=== PATIENT | male | born 1950 | race African-American/Black ===

== ENCOUNTER 2018-09-22 15:07 | Inpatient (IN) | payer OTHER, MEDICAID ==
[~2018-09-22] VITALS: Ht 182.9 cm; Wt 93.2 kg
[2018-09-22 15:15] VITALS: Ht 182.9 cm; Wt 93.2 kg
--- NOTE | 2018-09-22 15:24 | NUR ---
PROTECTIVE SIGNAL OPERATOR AT BEDSIDE FOR BLOOD DRAW.
--- NOTE | 2018-09-22 15:26 | NUR ---
REC'D A 68/M IN RM OB BIBA WITH C/O GENERALIZED WEAKNESS/DIZZINESS X "COUPLE OF DAYS". PER MEDIC, PT STS HE WAS WASHING HIS DAUGTHER'S CAR OUTSIDE AND FELT DIZZY SO HE WENT INSIDE. ON SCENE, PT'S SYSTOLIC BP: 70'S. THEY GAVE PT'S 500 NS BOLUS AND THE BP INCREASED TO THE 90S. MEDIC REPORTS NO AC AT THE PT'S HOUSE, "IT WAS HOTTER INSIDE THAN OUTSIDE". PT STS "I ONLY GET DIZZY WHEN I GET UP". PT AAOX4, CLEAR SPEECH, RESP E/U, ON CM, IN NO ACUTE DISTRESS.
[2018-09-22 15:41] LABS: CALCIUM 8.6 mg/dL (8.5-10.1); CARBON DIOXIDE 25.7 mmol/L (21-32); POTASSIUM SERUM 3.1 mmol/L (3.5-5.1)
[2018-09-22 15:42] LABS: BASOPHIL % 0.5 % (0-2); PLATELET COUNT 163 x10^3mcL (130-400)
[2018-09-22 15:45] LABS: RED CELL DISTRIBUTION WIDTH 14.6 % (11.5-14.5)
[2018-09-22 15:47] LABS: ALBUMIN 3.5 g/dL (3.4-5.0); BILIRUBIN TOTAL 0.33 mg/dL (0.20-1.00); TOTAL PROTEIN, SERUM 7.3 g/dL (6.4-8.2)
[2018-09-22 17:08] LABS: CALCIUM 8.9 mg/dL (8.5-10.1); MAGNESIUM 1.5 mg/dL (1.8-2.4)
--- NOTE | 2018-09-22 17:14 | NUR ---
PROVIDED URINE SPECIMEN CONTAINER AT BEDSIDE FOR UA. PT VERBALIZED UNDERSTANDING.
--- NOTE | 2018-09-22 17:42 | NUR ---
pt taken to ct via [facility].
--- NOTE | 2018-09-22 18:01 | NUR ---
PT AAOX4, WATCHING TV, RESP E/U, IN NO ACUTE DISTRESS.
--- NOTE | 2018-09-22 18:46 | NUR ---
CANDIDA (CAREGIVER) AT BEDSIDE. SHE PROVIDED NUMBER FOR RIDE: [phone]
[2018-09-22 18:49] LABS: microscopic required? NO
--- NOTE | 2018-09-22 19:08 | NUR ---
PT SEEN SITTING IN BED PLAYING WITH TV REMOTE. PT STATES THAT HE IS FEELING BETTER. CALL LIGHT WITHIN REACH. NAD AT THIS TIME
[2018-09-22 19:11] LABS: urine erythrocyte NEGATIVE (NEGATIVE)
[2018-09-22 19:31] LABS: AMPHETAMINE QUAL UR NONE DETECTED (See below)
[2018-09-22] MEDS ORDERED: LIPITOR20 MG PO (19:32)
[2018-09-22] MEDS ORDERED: ZES10 PO (19:32)
[2018-09-22] MEDS ORDERED: NOVOLIN 70100 UNIT/1 SQ (19:33)
[2018-09-22] MEDS ORDERED: CHLORTHALIDONE25 MG PO (19:33)
[2018-09-22] MEDS ORDERED: GLUCOPHAGE1000 MG PO (19:33)
--- NOTE | 2018-09-22 20:10 | NUR ---
REPORT CALLED TO [facility].
--- NOTE | 2018-09-22 20:14 | NUR ---
PT CAREGIVER STATES THAT SHE WILL TAKE PT MEDICATIONS HOME
--- NOTE | 2018-09-22 20:20 | NUR ---
RECEIVED PT FROM ED VIA [facility], CAME IN DUE TO DIZZINESS AND WEAKNESS. AAOX3, PT CAN'T REMEMBER THE DATE. ABLE TO FOLLOW COMMANDS. DENIES HEADACHE/DIZZINESS. NO SOB NOTED, O2 SAT=98%, RA. DENIES CHEST PAIN/PRESSURE, SINUS BRADYCARDIA ON THE MONITOR. DENIES ABDOMINAL DISCOMFORT. BOWEL SOUNDS ACTIVE. IV SITE PATENT AND INTACT. SIDE RAILS UPX2. CALL LIGHT ON REACH. PRIMARY NURSE TRISTEN AT BEDSIDE FOR CONTINUITY OF CARE
[2018-09-22 20:25] LABS: CALCIUM 8.8 mg/dL (8.5-10.1); CARBON DIOXIDE 24.9 mmol/L (21-32); CHOLESTEROL/HDL RATIO 2.3; PHOSPHOROUS 4.4 mg/dL (2.5-4.9); POTASSIUM SERUM 3.2 mmol/L (3.5-5.1)
[2018-09-22 20:31] VITALS: BP 122/64
[2018-09-22 20:32] LABS: FREE T4 1.07 ng/dL (0.76-1.46); FREE THYROXINE INDEX 2.2 ug/dL (1.4-4.5); T4(THYROXINE) 5.6 ug/dL (4.7-13.3)
--- NOTE | 2018-09-22 20:40 | NUR ---
PT IS A/O X3. RESPONDS TO VERBAL STIMULI, FOLLOWS COMMANDS. PT IS ON TELE #8 SB. PT PULSES [place], NO EDEMA NOTED. PT CLEAR LUNG SOUND BILATERALLY. BREATHE EVEN AND UNLABORED. PT HAS ACTIVE BOWEL SOUND, LAST BM 09/22. PT VOIDS, URINAL AT BEDSIDE. PT AMBULATORY.PT DENIES ANY PAIN AT THIS TIME. PT IV TO LH INFUSING WELL. CALL LIGHT WITHIN REACH, WILL CONT TO MONITOE. PT DENIES ANY SOB OR CHEST PAIN AT THIS TIME.
[2018-09-22 20:41] LABS: T3 TOTAL 0.9 ng/mL
[2018-09-22 20:43] VITALS: BP 122/64
--- NOTE | 2018-09-23 03:00 | NUR ---
PT IN BED AWAKE, DENIES ANY PAIN. PT BREATHING EVEN AND UNLABORED. NO RESP DISTRESS NOTED AT THIS TIME. WILL CONT TO MONITOR. CALL LIGHT WITHIN REACH.
[2018-09-23 05:37] VITALS: BP 107/64
[2018-09-23 06:11] LABS: BASOPHIL % 0.5 % (0-2); PLATELET COUNT 152 x10^3mcL (130-400); RED CELL DISTRIBUTION WIDTH 14.5 % (11.5-14.5)
--- NOTE | 2018-09-23 06:18 | NUR ---
PT WAS AWAKE MOST OF THE NIGHT. PT DENIES ANY CHEST PAIN AT THIS TIME OR SOB. PT DENIES ANY DIZZINESS OR LIGHTHEADNES AT THIS TIME. PT IS COOPERATIVE WITH NURSING CARE. PT IS ON TELE 8. BREATHING EVEN AND UNLABORED. PT IV TO LH INFUSING WELL. WILL ENDORSE CARE TO DAY SHIFT NURSE. WILL CONT TO MONITOR.
[2018-09-23 06:26] LABS: CALCIUM 8.7 mg/dL (8.5-10.1); CARBON DIOXIDE 26.8 mmol/L (21-32); CREATININE SERUM 1.4 mg/dL (0.7-1.3); MAGNESIUM 1.7 mg/dL (1.8-2.4); PHOSPHOROUS 2.9 mg/dL (2.5-4.9); POTASSIUM SERUM 4.1 mmol/L (3.5-5.1)
--- NOTE | 2018-09-23 07:45 | NUR ---
PATIENT RESTING IN BED, NO ACUTE DISTRESS NOTED. PATIENT DENIES SOB, PATIENT ON ROOM AIR. DENIES BRIZUELA, DIZZINESS. TELE MONITOR IN PLACE, DENIES CHEST PAIN. NO WEAKNESS NOTED AT THIS TIME. PATIENT DENIES PAIN. NS IV INFUSING TO LH AT 100 ML/HR, NO S/S OF INFILTRATION. CALL LIGHT WITHIN REACH, BED IN LOW POSITION, WILL CONTINUE TO MONITOR.
[2018-09-23 09:25] VITALS: BP 110/68
--- NOTE | 2018-09-23 12:00 | NUR ---
PATIENT AMBULATING HALLWAYS, SLOW STEADY GAIT NOTED. PHYSICAL THERAPIST AT SIDE.
[2018-09-23 12:37] VITALS: BP 110/64
--- NOTE | 2018-09-23 13:00 | NUR ---
PATIENT SITTING UP AT BEDSIDE EATING, PATIENT TLERATING DIET. NO ACUTE DISTRESS NOTED. PATIENT DENIES PAIN. CALL LIGHT WITHIN REACH, BED IN LOW POSITION, WILL CONTINUE TO MONITOR FOR CHANGES.
[2018-09-23 17:18] VITALS: BP 110/64
--- NOTE | 2018-09-23 18:32 | NUR ---
PATIENT WAS D/C HOME. PATIENT RECEIVED COPY OF D/C INSTRUCTIONS, PATIENT UNDERSTANDS AND AGREES WITH PLAN OF CARE, INCLUDING FOLLOW UP & MEDICATIONS. ALL QUESTIONS AND CONCERNS ADDRESSED. TELE MONITOR & ARMBANDS REMOVED. IV TO LH REMOVED, CATH INTACT. PATIENT TOOK ALL PERSONAL BELONGINGS. PATIENT TAKEN DOWN BY VICE PRESIDENT OF COMMUNICATIONS.
== END 2018-09-23 18:32 | disposition home or self-care (01) | DRG 640 ==
LOC: ED 15:07 → DU 19:17
PROVIDERS: Emergency Medicine; ADMIT Internal Medicine
DX: E86.0 Dehydration (principal); G93.41 Metabolic encephalopathy; N17.0 Acute kidney failure with tubular necrosis; I95.9 Hypotension, unspecified; E87.6 Hypokalemia; E83.42 Hypomagnesemia; I10 Essential (primary) hypertension; E11.9 Type 2 diabetes mellitus without complications; E78.00 Pure hypercholesterolemia, unspecified; Z79.84 Long term (current) use of oral hypoglycemic drugs; Z79.4 Long term (current) use of insulin; Z68.30 Body mass index [BMI] 30.0-30.9, adult
CPT/HCPCS: 82962; 83880; 84439; 97116-GP; G0378; J7030; Q0092